=== PATIENT | female | born 1985 | race American Indian/Alaskan Native ===

== ENCOUNTER 2017-07-19 19:34 | Outpatient (CLI) | payer OTHER ==
[2017-07-19] MEDS ORDERED: LACTATED RINGERS 500 ML IV ONE (21:09)
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
[2017-07-20 02:38] VITALS: BP 156/78
== END 2017-07-20 03:29 | disposition home or self-care (01) ==
LOC: EDSTATUS 20:26 → TRG 20:32
PROVIDERS: ATTEND Obstetrics & Gynecology
DX: O26.892 Other specified pregnancy related conditions, second trimester (principal); V49.88XA Car occupant (driver) (passenger) injured in other specified transport accidents, initial encounter; Z3A.21 21 weeks gestation of pregnancy; Y93.89 Activity, other specified; Y92.89 Other specified places as the place of occurrence of the external cause; Y99.8 Other external cause status
CPT/HCPCS: 76815; 86850; 86900; 86901